=== PATIENT | female | born 1995 | race Hispanic/Latino ===

== ENCOUNTER 2018-04-20 04:29 | Inpatient (IN) | payer BC ==
--- NOTE | 2018-04-20 04:49 | ED PDOC ---
HPI: Abdomen Time Seen by Provider: 04/20/18 04:48 Chief Complaint (Nursing): Abdominal Pain Chief Complaint (Provider): abd pain History Per: Patient Additional Complaint(s): 23 y/o female presents with right side lower abdominal pain, nausea and diarrhea that started at midnight. Patient states she felt as if she has fever but did not measure temp. She took Aleve at home but this did not help the pain. No associated dysuria, vaginal discharge or vaginal bleeding. PMD: none Past Medical History Reviewed: Historical Data, Nursing Documentation, Vital Signs Vital Signs: Last Vital Signs Temp 98.8 F 04/20/18 04:41 Pulse 116 H 04/20/18 04:41 Resp 15 04/20/18 04:41 BP 150/101 H 04/20/18 04:41 Pulse Ox 97 04/20/18 05:22 - Medical History PMH: No Chronic Diseases - Surgical History Surgical History: No Surg Hx - Family History Family History: States: No Known Family Hx - Living Arrangements Living Arrangements: With Friends/Others - Social History Current smoker - smoking cessation education provided: No Alcohol: None Drugs: Denies - Allergies Allergies/Adverse Reactions: Allergies Allergy/AdvReac Type Severity Reaction Status Date / Time raspberry Allergy URTICARIA Verified 04/20/18 04:44 Review of Systems ROS Statement: Except As Marked, All Systems Reviewed And Found Negative Constitutional: Positive for: Fever (tactile). Negative for: Chills Cardiovascular: Negative for: Chest Pain Respiratory: Negative for: Cough Gastrointestinal: Positive for: Nausea, Abdominal Pain, Diarrhea. Negative for : Vomiting, Constipation Genitourinary Female: Negative for: Dysuria, Vaginal Discharge, Vaginal Bleeding Physical Exam - Reviewed Nursing Documentation Reviewed: Yes Vital Signs Reviewed: Yes - Physical Exam Appears: Positive for: Well, Non-toxic, No Acute Distress Skin: Positive for: Normal Color. Negative for: Rash Eye Exam: Positive for: Normal appearance Cardiovascular/Chest: Positive for: Regular Rate, Rhythm Respiratory: Positive for: Normal Breath Sounds Gastrointestinal/Abdominal: Positive for: Other (marked tenderness RLQ, (+) guarding, no rebound, no distention, normoactive bowel sounds in all 4 quadrants ) Back: Negative for: L CVA Tenderness, R CVA Tenderness Extremity: Positive for: Normal ROM Neurologic/Psych: Positive for: Alert, Oriented - Laboratory Results Urine dip results: Positive for: Leukocyte Esterase (small), Blood (small) - ECG O2 Sat by Pulse Oximetry: 97 Pulse Ox Interpretation: Normal Medical Decision Making Medical Decision Makin23 year old with right sided abdominal pain Plan: Urine test Urine dip CBC CMP Lipase IVF CT abd and pelvis with IV contrast Pain meds declined IV zofran 6:00 am - care of patient continued by Dr. Helms. Disposition - Clinical Impression Clinical Impression: Abdominal pain - Patient ED Disposition Is Patient to be Admitted: No - Disposition Disposition: Transfer of Care Disposition Time: 06:00 Condition: FAIR Forms: [facility] (Urdu) Handoff Comments: Pending diagnostic testing results and final disposition
[2018-04-20] MEDS ORDERED: Sodium Chloride 0.9% 1,000 ML IV STA (05:14)
[2018-04-20 05:51] LABS: BASO # 0.1 K/uL (0.0-0.2); BASO % 0.5 % (0.0-2.0); EOS % 0.2 % (0.0-4.0); HEMOGLOBIN 13.1 g/dL (12.0-16.0); LYMPH # 1.7 K/uL (1.0-4.3); LYMPH % 14.4 % (20.0-40.0); MEAN CELL VOLUME 83.6 fl (81.0-99.0); MEAN CORPUSCULAR HEMOGLOBIN 27.9 pg (27.0-31.0); MEAN CORPUSCULAR HGB CONC 33.4 g/dL (33.0-37.0); MEAN PLATELET VOLUME 8.1 fl (7.2-11.7); MONO # 0.8 K/uL (0.0-0.8); MONO % 6.6 % (0.0-10.0); NEUT # 9.5 K/uL (1.8-7.0); NEUT % 78.3 % (50.0-75.0); RBC 4.7 Mil/uL (3.80-5.20); RED CELL DISTRIBUTION WIDTH 13.6 % (11.5-14.5); WHITE BLOOD COUNT 12.1 K/uL (4.8-10.8)
[2018-04-20 05:53] LABS: SQUAMOUS EPITHIAL < 1 /hpf (0-5); URINE BACTERIA RARE (<OCC); URINE BILIRUBIN NEGATIVE (NEGATIVE); URINE BLOOD SMALL (NEGATIVE); URINE CLARITY CLEAR (Clear); URINE COLOR YELLOW (YELLOW); URINE GLUCOSE (UA) NEG (Normal); URINE LEUKOCYTE ESTERASE TRACE Leu/uL (Negative); URINE PROTEIN NEGATIVE (NEGATIVE); URINE UROBILINOGEN 0.2-1.0 mg/dL (0.2-1.0)
[2018-04-20 06:02] LABS: ALB/GLOB RATIO 1.3 (1.0-2.1); ALBUMIN 3.9 g/dL (3.5-5.0); ALT/SGPT 43 U/L (9-52); AST/SGOT 22 U/L (14-36); BLOOD UREA NITROGEN 13 mg/dl (7-17); CALCIUM 9.6 mg/dL (8.4-10.2); GFR NON-AFRICAN AMERICAN > 60; LIPASE 25 U/L (23-300)
[2018-04-20] MEDS ORDERED: Sodium Chloride 0.9% 50 ML IV ONE (06:07)
[2018-04-20] MEDS ORDERED: Iohexol 300 100 ML IJ ONE (06:07)
[2018-04-20] MEDS ORDERED: Piperacillin/Tazobact 3.375 GM in Sodium Chloride 0.9% 100 ML IVPB STA ×2 (06:36→17:05)
[2018-04-20] MEDS ORDERED: Piperacillin/Tazobact 3.375 gm Inj IVPB ONE (06:43)
--- NOTE | 2018-04-20 06:44 | CP.PCM.CON ---
History of Present Illness - History of Present Illness History of Present Illness: General Surgery Consult Note for Dr. Holden Reason for consult: Acute appendicitis 23 F with PMH of childhood asthma presents to [facility] for complaint of RLQ abdominal pain. Patient was seen and evaluated in the ED. Patient states that abdominal pain began around 2200 last night about an hour after eating pizza. Patient states that pain was bearable at first but then got progressively worse. She managed to fall asleep but pain woke her up around 0100. She reports to never experiencing this pain before. She admits to associated nausea and 1 episode of non-bloody diarrhea. She rate pain as severe. She describes pain as constant and sharp in RLQ without radiation. She denies any recent illness or sick contacts. Admist anorexia. Denies fever/chills, chest pain, SOB, palpitations, vomiting, constipation, or urinary symptoms. 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 Review of Systems - Review of Systems All systems: reviewed and no additional remarkable complaints except (as per HPI ) Past Patient History - Past Social History Alcohol: None Drugs: Denies - PSYCHIATRIC Hx Substance Use: No - SURGICAL HISTORY Hx Surgeries: No - ANESTHESIA Hx Anesthesia: No Meds Allergies/Adverse Reactions: Allergies Allergy/AdvReac Type Severity Reaction Status Date / Time raspberry Allergy URTICARIA Verified 04/20/18 04:44 - Medications Medications: Current Medications Piperacillin Sod/Tazobactam (Sod 3.375 gm/ Sodium Chloride) 100 mls @ 100 mls/ hr IVPB STAT STA PRN Reason: Protocol Stop: 04/20/18 07:35 Physical Exam - Constitutional Appears: Well, Non-toxic, No Acute Distress - Head Exam Head Exam: ATRAUMATIC, NORMOCEPHALIC - Eye Exam Eye Exam: EOMI, Normal appearance Pupil Exam: PERRL - ENT Exam ENT Exam: Mucous Membranes Moist - Respiratory Exam Respiratory Exam: NORMAL BREATHING PATTERN - Cardiovascular Exam Cardiovascular Exam: REGULAR RHYTHM - GI/Abdominal Exam GI & Abdominal Exam: Normal Bowel Sounds, Soft, Tenderness (RLQ). absent: Distended, Firm, Guarding, Hernia, Rebound, Rigid Additional comments: (+) McBurney's point (+) Rosving sign (-) obturator and psoas sign - Rectal Exam Rectal Exam: Deferred - Extremities Exam Extremities exam: Positive for: normal capillary refill, pedal pulses present. Negative for: calf tenderness - Back Exam Back exam: absent: CVA tenderness (L), CVA tenderness (R) - Neurological Exam Neurological exam: Alert, CN II-XII Intact, Oriented x3 - Psychiatric Exam Psychiatric exam: Normal Affect, Normal Mood - Skin Skin Exam: Dry, Intact, Normal Color, Warm Results - Vital Signs Recent Vital Signs: Last Vital Signs Temp 98.8 F 04/20/18 04:41 Pulse 90 04/20/18 06:37 Resp 17 04/20/18 06:37 BP 117/79 04/20/18 06:37 Pulse Ox 100 04/20/18 06:37 - Labs Result Diagrams: 04/20/18 05:30 04/20/18 05:30 Labs: Laboratory Results - last 24 hr 04/20/18 04/20/18 04/20/18 05:26 05:30 05:30 WBC 12.1 H RBC 4.70 Hgb 13.1 Hct 39.3 MCV 83.6 MCH 27.9 MCHC 33.4 RDW 13.6 Plt Count 248 MPV 8.1 Neut % (Auto) 78.3 H Lymph % (Auto) 14.4 L [place] % (Auto) 6.6 Eos % (Auto) 0.2 Baso % (Auto) 0.5 Neut # (Auto) 9.5 H Lymph # (Auto) 1.7 [place] # (Auto) 0.8 Eos # (Auto) 0.0 Baso # (Auto) 0.1 Sodium 139 Potassium 4.1 Chloride 108 H Carbon Dioxide 23 Anion Gap 12 BUN 13 Creatinine 0.8 Est GFR ( Amer) > 60 Est GFR (Non-Af Amer) > 60 Random Glucose 114 H Calcium 9.6 Total Bilirubin 0.4 AST 22 ALT 43 Alkaline Phosphatase 60 Total Protein 7.0 Albumin 3.9 Globulin 3.1 Albumin/Globulin Ratio 1.3 Lipase 25 Urine Color Yellow Urine Clarity Clear Urine pH 6.0 Ur Specific [place] 1.015 Urine Protein Negative Urine Glucose (UA) Neg Urine Ketones Negative Urine Blood Small Urine Nitrate Negative Urine Bilirubin Negative Urine Urobilinogen 0.2-1.0 Ur Leukocyte Esterase Trace Urine RBC (Auto) 1 Urine Microscopic WBC 1 Ur Squamous Epith Cells < 1 Urine Bacteria Rare Assessment & Plan - Assessment and Plan (Free Text) Assessment: 23 F with acute appendicitis Plan: -NPO -IVF -IV abx -Analgesics/Anti-emetics PRN -f/u Coags -Plan for laparoscopic appendectomy in OR this morning -Discussed with Dr. Navin Barton PGY2 - Date & Time Date: 04/20/18 Time: 08:15
[2018-04-20 07:23] LABS: VENOUS BLOOD GAS BASE EXCESS -2.8 mmol/L (0.0-2.0); VENOUS BLOOD GAS PCO2 49 mmHg (40-60); VENOUS BLOOD GAS PO2 28 mm/Hg (30-55)
--- NOTE | 2018-04-20 08:33 | ED PDOC ---
- Laboratory Results Result Diagrams: 04/20/18 05:30 04/20/18 05:30 - ECG O2 Sat by Pulse Oximetry: 100 Medical Decision Making Medical Decision Making: received patient from Dr. Helms. Patient pending formal surgical evaluation for appendicitis. Patient evaluated by residential collections. Admitted to Dr. Holden for appendicitis for surgery this morning. Disposition Doctor Will See Patient In The: Hospital - Clinical Impression Clinical Impression: Appendicitis - POA Present On Arrival: None - Disposition Disposition: Transfer of Care Disposition Time: 08:00 Condition: FAIR Instructions: Appendicitis in Adults Forms: [facility] (Ethiopian)
[2018-04-20] MEDS ORDERED: Propofol 10 mg/ml Inj (20 ML) ONE ×2 (08:43→09:54)
[2018-04-20] MEDS ORDERED: Lidocaine 4% (Laryng-O-Jet) Kit MM ONE (08:44)
[2018-04-20] MEDS ORDERED: Neostigmine 1:1000 (1 mg/ml) Inj ONE (08:44)
[2018-04-20] MEDS ORDERED: Lidocaine 1% 5ml Abboject IV ONE (08:44)
[2018-04-20] MEDS ORDERED: Succinylcholine 200 mg/10 ml Inj IV ONE (08:44)
[2018-04-20] MEDS ORDERED: Midazolam 2 MG/2 ML VIAL ONE (08:44)
[2018-04-20] MEDS ORDERED: Rocuronium 10 mg/ml (5 ml) ONE (08:45)
[2018-04-20] MEDS: Lactated Ringer's 1,000 ML IV SCH ×2 (08:57→17:56)
[2018-04-20 09:28] LABS: PROTHROMBIN TIME 10.7 Seconds (9.8-13.1)
[2018-04-20 09:29] LABS: PARTIAL THROMBOPLASTIN TIME 31.1 Seconds (25.6-37.1)
[2018-04-20] MEDS ORDERED: Bupivacaine 0.5% Inj(30mL) IJ ONE (10:32)
[2018-04-20] MEDS ORDERED: Lactated Ringer's 1,000 ML IV ONE (10:34)
[2018-04-20] MEDS ORDERED: Lactated Ringer's 1,000 ML IV SCH (11:30)
--- NOTE | 2018-04-20 11:32 | PCM.SURG1 ---
Surgeon's Initial Post Op Note - Surgeon's Notes Surgeon: Dr. Holden Psychiatric Secretary: Mick PGY2 Type of Anesthesia: General Endo, Local Anesthesia Administered By: Dr. Fernandez Pre-Operative Diagnosis: Acute appendicitis Operative Findings: Acute appendicitis Post-Operative Diagnosis: Acute appendicitis Operation Performed: Laparoscopic Appendectomy Specimen/Specimens Removed: Appendix Estimated Blood Loss: EBL {In ML}: 5 Blood Products Given: N/A Drains Used: No Drains Post-Op Condition: Good Date of Surgery/Procedure: 04/20/18 Time of Surgery/Procedure: 11:32
[2018-04-20] MEDS ORDERED: Oxycodone/Acetaminophen 5/325 mg Tab PO PRN (11:33)
--- NOTE | 2018-04-20 12:14 | CT ---
Date of service: 04/20/2018 PROCEDURE: CT abdomen pelvis. HISTORY: Right lower quadrant pain, diarrhea, nausea COMPARISON: None. TECHNIQUE: Contiguous axial images of the abdomen and pelvis performed following intravenous injection of approximately 95 cc Omnipaque 300 contrast material. Additional 2D reformats generated. This CT exam was performed using one or more of the following dose reduction techniques: Automated exposure control, adjustment of the mA and/or kV according to patient size, and/or use of iterative reconstruction technique. Radiation dose: Total exam DLP = 859.24 mGy-cm. FINDINGS: LOWER THORAX: Heart size within range of normal. No significant pericardial effusion. Small hiatal hernia with wall thickening of distal esophagus likely due to protrusion gastric mucosa. LIVER: Liver is mildly enlarged measuring nearly 19 cm in CC dimension. Mild fatty hepatic infiltration. GALLBLADDER AND BILE DUCTS: Unremarkable. PANCREAS: Unremarkable. No mass. No ductal dilatation. SPLEEN: Unrema spleen is upper limits of normal/borderline enlarged measuring approximately 13 cm in AP dimension. ADRENALS: Unremarkable. KIDNEYS AND URETERS: Unremarkable. No stone or hydronephrosis. BLADDER: Grossly unremarkable. REPRODUCTIVE: Unremarkable. APPENDIX: The appendix is dilated measuring approximately 14.6 mm in diameter with wall thickening and surrounding infiltration. Findings are consistent with acute appendicitis. . BOWEL: Unremarkable. No obstruction. No gross mural thickening. PERITONEUM: Unremarkable. No fluid collection. No free air. Small fat containing umbilical hernia. LYMPH NODES: Several of nonspecific small to medium-sized mesenteric lymph nodes right lower abdomen likely reactive. VASCULATURE: Unremarkable. No aortic aneurysm. BONES: No fracture or destructive lesion. OTHER FINDINGS: None. IMPRESSION: Findings consistent with acute appendicitis as above. . Probable reactive lymph node right lower abdomen. Mild hepatomegaly with mild fatty hepatic infiltration. Mild splenomegaly
[2018-04-20 14:21] VITALS: RESP 18
[2018-04-20 17:03] VITALS: BP 114/73; PULSE 84; TEMP 97.9; O2SAT 96
--- NOTE | 2018-04-20 17:04 | CP.PCM.DIS ---
Provider - Provider Date of Admission: 04/20/18 08:30 Attending physician: Castillo Holden MD Consults: NONE Time Spent in preparation of Discharge (in minutes): 40 Diagnosis - Discharge Diagnosis (1) Acute appendicitis Status: Acute Comment: s/p [facility] Hospital Course - Lab Results Lab Results: Most Recent Lab Values WBC 12.1 K/uL (4.8-10.8) H 04/20/18 05:30 RBC 4.70 Mil/uL (3.80-5.20) 04/20/18 05:30 Hgb 13.1 g/dL (12.0-16.0) 04/20/18 05:30 Hct 39.3 % (34.0-47.0) 04/20/18 05:30 MCV 83.6 fl (81.0-99.0) 04/20/18 05:30 MCH 27.9 pg (27.0-31.0) 04/20/18 05:30 MCHC 33.4 g/dL (33.0-37.0) 04/20/18 05:30 RDW 13.6 % (11.5-14.5) 04/20/18 05:30 Plt Count 248 K/uL (130-400) 04/20/18 05:30 MPV 8.1 fl (7.2-11.7) 04/20/18 05:30 Neut % (Auto) 78.3 % (50.0-75.0) H 04/20/18 05:30 Lymph % (Auto) 14.4 % (20.0-40.0) L 04/20/18 05:30 [place] % (Auto) 6.6 % (0.0-10.0) 04/20/18 05:30 Eos % (Auto) 0.2 % (0.0-4.0) 04/20/18 05:30 Baso % (Auto) 0.5 % (0.0-2.0) 04/20/18 05:30 Neut # (Auto) 9.5 K/uL (1.8-7.0) H 04/20/18 05:30 Lymph # (Auto) 1.7 K/uL (1.0-4.3) 04/20/18 05:30 [place] # (Auto) 0.8 K/uL (0.0-0.8) 04/20/18 05:30 Eos # (Auto) 0.0 K/uL (0.0-0.7) 04/20/18 05:30 Baso # (Auto) 0.1 K/uL (0.0-0.2) 04/20/18 05:30 PT 10.7 Seconds (9.8-13.1) 04/20/18 08:40 INR 1.0 04/20/18 08:40 APTT 31.1 Seconds (25.6-37.1) 04/20/18 08:40 pO2 28 mm/Hg (30-55) L 04/20/18 07:00 VBG pH 7.30 (7.32-7.43) L 04/20/18 07:00 VBG pCO2 49 mmHg (40-60) 04/20/18 07:00 VBG HCO3 21.3 mmol/L 04/20/18 07:00 VBG Total CO2 25.6 mmol/L (22-28) 04/20/18 07:00 VBG O2 Sat (Calc) 58.8 % (40-65) 04/20/18 07:00 VBG Base Excess -2.8 mmol/L (0.0-2.0) L 04/20/18 07:00 VBG Potassium 4.3 mmol/L (3.6-5.2) 04/20/18 07:00 Sodium 136.0 mmol/L (132-148) 04/20/18 07:00 Chloride 108.0 mmol/L (98-107) H 04/20/18 07:00 Glucose 109 mg/dL (65-105) H 04/20/18 07:00 Lactate 1.7 mmol/L (0.7-2.1) 04/20/18 07:00 FiO2 21.0 % 04/20/18 07:00 Sodium 139 mmol/l (132-148) 04/20/18 05:30 Potassium 4.1 MMOL/L (3.6-5.0) 04/20/18 05:30 Chloride 108 mmol/L (98-107) H 04/20/18 05:30 Carbon Dioxide 23 mmol/L (22-30) 04/20/18 05:30 Anion Gap 12 (10-20) 04/20/18 05:30 BUN 13 mg/dl (7-17) 04/20/18 05:30 Creatinine 0.8 mg/dl (0.7-1.2) 04/20/18 05:30 Est GFR ( Amer) > 60 04/20/18 05:30 Est GFR (Non-Af Amer) > 60 04/20/18 05:30 Random Glucose 114 mg/dL (65-105) H 04/20/18 05:30 Calcium 9.6 mg/dL (8.4-10.2) 04/20/18 05:30 Total Bilirubin 0.4 mg/dl (0.2-1.3) 04/20/18 05:30 AST 22 U/L (14-36) 04/20/18 05:30 ALT 43 U/L (9-52) 04/20/18 05:30 Alkaline Phosphatase 60 U/L (38-126) 04/20/18 05:30 Total Protein 7.0 G/DL (6.3-8.2) 04/20/18 05:30 Albumin 3.9 g/dL (3.5-5.0) 04/20/18 05:30 Globulin 3.1 gm/dL (2.2-3.9) 04/20/18 05:30 Albumin/Globulin Ratio 1.3 (1.0-2.1) 04/20/18 05:30 Lipase 25 U/L (23-300) 04/20/18 05:30 Venous Blood Potassium 4.3 mmol/L (3.6-5.2) 04/20/18 07:00 Urine Color Yellow (YELLOW) 04/20/18 05:26 Urine Clarity Clear (Clear) 04/20/18 05:26 Urine pH 6.0 (5.0-8.0) 04/20/18 05:26 Ur Specific [place] 1.015 (1.003-1.030) 04/20/18 05:26 Urine Protein Negative mg/dL (NEGATIVE) 04/20/18 05:26 Urine Glucose (UA) Neg mg/dL (Normal) 04/20/18 05:26 Urine Ketones Negative mg/dL (NEGATIVE) 04/20/18 05:26 Urine Blood Small (NEGATIVE) 04/20/18 05:26 Urine Nitrate Negative (NEGATIVE) 04/20/18 05:26 Urine Bilirubin Negative (NEGATIVE) 04/20/18 05:26 Urine Urobilinogen 0.2-1.0 mg/dL (0.2-1.0) 04/20/18 05:26 Ur Leukocyte Esterase Trace [place]/uL (Negative) 04/20/18 05:26 Urine RBC (Auto) 1 /hpf (0-3) 04/20/18 05:26 Urine Microscopic WBC 1 /hpf (0-5) 04/20/18 05:26 Ur Squamous Epith Cells < 1 /hpf (0-5) 04/20/18 05:26 Urine Bacteria Rare (<OCC) 04/20/18 05:26 Blood Type A POSITIVE 04/20/18 08:40 Blood Type Confirm A POSITIVE 04/20/18 13:14 Antibody Screen Negative 04/20/18 08:40 BBK History Checked No verified bt 04/20/18 08:40 - Hospital Course Hospital Course: 23 F with PMH of childhood asthma presents to [facility] for complaint of RLQ abdominal pain. Patient was seen and evaluated in the ED. Patient states that abdominal pain began around 2200 last night about an hour after eating pizza. Patient states that pain was bearable at first but then got progressively worse. She managed to fall asleep but pain woke her up around 0100. She reports to never experiencing this pain before. She admits to associated nausea and 1 episode of non-bloody diarrhea. She rate pain as severe. She describes pain as constant and sharp in RLQ without radiation. She denies any recent illness or sick contacts. Admist anorexia. Denies fever/chills, chest pain, SOB, palpitations, vomiting, constipation, or urinary symptoms. Patient was admitted for Acute appendicitis. She was made NPO, given IV fluids and started on IV ABX. Patient went to OR for laparoscopic appendectomy. Patient tolerated procedure well with no complications. Later that day, pain was controllled, she tolerated diet, and was ambulating without difficulty. Patient was deemed medically stable for discharge by Dr. Holden. Patient was instruced to take OTC tylenol and motrin for pain prn/ She was also told to follow up as outpatient within 1 week if still in town. (This is a summary of the hospital course. Please refer to EMR for more details. ) - Date & Time of H&P Date of H&P: 04/20/18 Time of H&P: 06:44 Discharge Exam - Head Exam Head Exam: ATRAUMATIC, NORMOCEPHALIC - Eye Exam Eye Exam: Normal appearance - ENT Exam ENT Exam: Mucous Membranes Moist - Respiratory Exam Respiratory Exam: NORMAL BREATHING PATTERN - Cardiovascular Exam Cardiovascular Exam: REGULAR RHYTHM - GI/Abdominal Exam GI & Abdominal Exam: Soft. absent: Distended, Firm, Guarding, Rebound, Rigid, Tenderness Additional comments: surgical sites clean dry and intact - dermabond covering - Extremities Exam Extremities exam: normal capillary refill, pedal pulses present - Neurological Exam Neurological exam: Alert, Normal Gait, Oriented x3 - Psychiatric Exam Psychiatric exam: Normal Affect, Normal Mood - Skin Skin Exam: Dry, Intact, Normal Color, Warm Discharge Plan - Follow Up Plan Condition: STABLE Disposition: HOME/ ROUTINE Instructions: Appendicitis in Adults, Appendectomy, Laparoscopic Surgery Additional Instructions: Take OTC tylenol or motrin for pain prm Keep area clean and dry No heavy lifting >20lb for 3-4 weeks May shower Follow up with Dr. Holden within 1-2 weeks Please return to ED if symptoms persist or condition worsens. Referrals: Amol Holden MD [Staff Provider] -
--- NOTE | 2018-04-22 14:29 | CP.PCM.HP ---
History of Present Illness - History of Present Illness History of Present Illness: General Surgery H&P Note for Dr. Holden cc: Acute appendicitis 23 F with PMH of childhood asthma presents to [facility] for complaint of RLQ abdominal pain. Patient was seen and evaluated in the ED. Patient states that abdominal pain began around 2200 last night about an hour after eating pizza. Patient states that pain was bearable at first but then got progressively worse. She managed to fall asleep but pain woke her up around 0100. She reports to never experiencing this pain before. She admits to associated nausea and 1 episode of non-bloody diarrhea. She rate pain as severe. She describes pain as constant and sharp in RLQ without radiation. She denies any recent illness or sick contacts. Admist anorexia. Denies fever/chills, chest pain, SOB, palpitations, vomiting, constipation, or urinary symptoms. 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 Present on Admission - Present on Admission Any Indicators Present on Admission: No Review of Systems - Review of Systems All systems: reviewed and no additional remarkable complaints except (as per HPI ) Past Patient History - Past Medical History & Family History Past Medical History?: Yes - Past Social History Alcohol: None Drugs: Denies - CARDIAC Hx Cardiac Disorders: No - PULMONARY Hx Respiratory Disorders: Yes (Asthma) - NEUROLOGICAL Hx Neurological Disorder: No - HEENT Hx HEENT Problems: No - RENAL Hx Chronic Kidney Disease: No - ENDOCRINE/METABOLIC Hx Endocrine Disorders: No - HEMATOLOGICAL/ONCOLOGICAL Hx Blood Disorders: No - INTEGUMENTARY Hx Dermatological Problems: No - MUSCULOSKELETAL/RHEUMATOLOGICAL Hx Musculoskeletal Disorders: No - GASTROINTESTINAL Hx Gastrointestinal Disorders: No - GENITOURINARY/GYNECOLOGICAL Hx Genitourinary Disorders: No - PSYCHIATRIC Hx Psychophysiologic Disorder: No - SURGICAL HISTORY Hx Surgeries: No - ANESTHESIA Hx Anesthesia: No Meds Allergies/Adverse Reactions: Allergies Allergy/AdvReac Type Severity Reaction Status Date / Time raspberry Allergy URTICARIA Verified 04/20/18 04:44 Physical Exam - Additional Findings Additional findings: - Constitutional Appears: Well, Non-toxic, No Acute Distress - Head Exam Head Exam: ATRAUMATIC, NORMOCEPHALIC - Eye Exam Eye Exam: EOMI, Normal appearance Pupil Exam: PERRL - ENT Exam ENT Exam: Mucous Membranes Moist - Respiratory Exam Respiratory Exam: NORMAL BREATHING PATTERN - Cardiovascular Exam Cardiovascular Exam: REGULAR RHYTHM - GI/Abdominal Exam GI & Abdominal Exam: Normal Bowel Sounds, Soft, Tenderness (RLQ). absent: Distended, Firm, Guarding, Hernia, Rebound, Rigid Additional comments: (+) McBurney's point (+) Rosving sign (-) obturator and psoas sign - Rectal Exam Rectal Exam: Deferred - Extremities Exam Extremities exam: Positive for: normal capillary refill, pedal pulses present. Negative for: calf tenderness - Back Exam Back exam: absent: CVA tenderness (L), CVA tenderness (R) - Neurological Exam Neurological exam: Alert, CN II-XII Intact, Oriented x3 - Psychiatric Exam Psychiatric exam: Normal Affect, Normal Mood - Skin Skin Exam: Dry, Intact, Normal Color, Warm Results - Vital Signs Recent Vital Signs: Last Vital Signs Temp 97.9 F 04/20/18 17:00 Pulse 84 04/20/18 17:00 Resp 18 04/20/18 17:00 BP 114/73 04/20/18 17:00 Pulse Ox 96 04/20/18 17:00 - Labs Result Diagrams: 04/20/18 05:30 04/20/18 05:30 Assessment & Plan - Assessment and Plan (Free Text) Assessment: 23 F with acute appendicitis Plan: -NPO -IVF -IV abx -Analgesics/Anti-emetics PRN -f/u Coags -Plan for laparoscopic appendectomy in OR this morning -Discussed with Dr. Navin Barton PGY2 - Date & Time Date: 04/20/18 Time: 06:44
--- NOTE | 2018-04-26 20:03 | OP ---
PROCEDURE DATE: 04/26/2018 SURGEON: Amol Holden MD FILLING CARRIER: Cam Barton DO, PGY-2. ANESTHESIOLOGIST: Sam Henson MD. ANESTHESIA: General endotracheal and local anesthesia. PREOPERATIVE DIAGNOSIS: Acute appendicitis. POSTOPERATIVE DIAGNOSIS: Acute appendicitis. OPERATIVE FINDINGS: Acute appendicitis. ESTIMATED BLOOD LOSS: 5 mL. DRAINS: None. COMPLICATIONS: None. DESCRIPTION OF PROCEDURE: The patient was taken to the operating room and placed supine on the operating table. General endotracheal anesthesia was then administered. The patient was prepped and draped in the usual fashion. Marcaine was used for local #11 blade was used for an incision. A Teresa was used to dissect down to the fascia. This port was used to enter the abdomen under visualization. The appendix was identified via laparoscopic camera. Two additional 5 mm ports were placed in suprapubic and left lower quadrant. The appendix was identified and dissected via harmonic. Once the appendix was dissected into the bone mesentery with adequate hemostasis and Endo-NORMA was used to staple across the appendix with the blue staple load. Staple line was examined. There was no obvious bleeding or oozing. The pelvis and liver were inspected. No obvious signs of fluid or bleeding or pus. The appendix was removed via the periumbilical incision. The periumbilical incision was closed with 0 Vicryl on . The skin at the periumbilical incision and two 5 mm port in the suprapubic in the left lower quadrant were closed with 4-0 Monocryl. The skin was also closed with Dermabond. The remainder of Marcaine was given for local anesthetics. Blood loss was approximately 5 cc. There were no complications. The patient tolerated the procedure well, was transferred to the PACU in stable condition. All counts were correct and confirmed by nursing. Cam Barton DO Amol Holden MD
== END 2018-04-20 18:50 | disposition home or self-care (01) | DRG 343 ==
LOC: H.ER 04:29 → H.ERHOLD 08:30 → H.MEDSURG1 12:55
PROVIDERS: ADMIT Internal Medicine Cardiovascular Disease; ATTEND Internal Medicine Cardiovascular Disease
PROC: 0DTJ4ZZ Resection of Appendix, Percutaneous Endoscopic Approach (ICD-10-PCS; principal; 2018-04-20 09:00)
DX: K35.80 Unspecified acute appendicitis (principal); J45.909 Unspecified asthma, uncomplicated